=== PATIENT | male | born 1955 | race Caucasian/White ===

== ENCOUNTER 2017-01-10 08:56 | Day surgery (SDC) | payer OTHER ==
[~2017-01-10] VITALS: Ht 182.9 cm; Wt 119.0 kg
[~2017-01-10 08:56] MED LIST: APRESOLINE50 MG PO; CALPHRON667 MG PO; NORVASC10 MG PO; RENA-VITE RX T1 EACH PO; SYNTHROID200 MCG PO; TENORMIN50 MG PO
[2017-01-10 09:36] VITALS: BP 136/83
[2017-01-10 09:57] LABS: HEMATOCRIT 29.6 % (38.0-50.0); MCH 28.4 PG (29.0-34.0); MCHC 32.1 G/DL (30.0-36.0); MCV 88.4 FL (86-99); MEAN PLAT.VOLUME 9.5 uM^3 (9.0-12.4); PLATELET COUNT 304 K/uL (156-360); RBC DIS.WIDTH-SD 43.4 % (39-53); RED BLOOD COUNT 3.35 M/uL (4.00-5.50); WHITE BLOOD COUNT 8.1 K/uL (4.1-10.2)
[2017-01-10 10:14] LABS: ANION GAP 12 MEQ/L (2-14); CHLORIDE 97 MEQ/L (99-109); POTASSIUM 4.4 MEQ/L (3.7-5.4); SAMPLE HEMOLYSIS CHECK 0; SAMPLE ICTERIC CHECK 0; SAMPLE LIPEMIA CHECK 0; SODIUM 139 MEQ/L (136-147)
[2017-01-10 10:19] LABS: GFR ESTIMATE (CALCULATED) 7 mL/min/; GLUCOSE 90 mg/dL (70-99); UREA NITROGEN (BUN) 33 mg/dL (9-23)
[2017-01-10 11:03] LABS: METH RESISTANT S AUREUS PCR NEGATIVE (NEGATIVE)
[2017-01-10 11:05] LABS: PROBE CHECK PASS; SPECIMEN PROCESSING CONTROL PASS
[2017-01-10] MEDS ORDERED: NORCO 5/3251 TABLET PO (14:56)
[2017-01-10 17:30] VITALS: BP 170/81
[2017-01-10 18:09] VITALS: BP 150/79
== END 2017-01-10 18:25 | disposition home or self-care (01) ==
LOC: SDC 08:56
PROVIDERS: Surgery
DX: I12.0 Hypertensive chronic kidney disease with stage 5 chronic kidney disease or end stage renal disease (principal); N18.6 End stage renal disease; E03.9 Hypothyroidism, unspecified
CPT/HCPCS: 80048; 85027; 87641; 93005; J0690; J1644; J2405; J3010

== ENCOUNTER → 2017-03-12 | Outpatient (CLI) | payer OTHER ==
[~2017-03-12] MED LIST changes: +INDOCIN25 MG PO; +NORCO 5/3251 TABLET PO; +PREDNISONE20 MG PO; +VIBRAMYCIN100 MG PO
== END | disposition home or self-care (01) ==
LOC: AMB 08:46
PROC: 05PYX3Z Removal of Infusion Device from Upper Vein, External Approach (ICD-10-PCS; principal; 2017-03-12)
DX: Z49.01 Encounter for fitting and adjustment of extracorporeal dialysis catheter (principal); N18.6 End stage renal disease

== ENCOUNTER 2017-03-18 11:11 | Emergency (ER) | payer OTHER ==
[~2017-03-18] VITALS: Ht 190.5 cm; Wt 119.4 kg
[~2017-03-18 11:11] MED LIST changes: -INDOCIN25 MG PO; -PREDNISONE20 MG PO; -VIBRAMYCIN100 MG PO
[2017-03-18 15:03] LABS: EOSINOPHIL (%) 0 % (0-5); HEMATOCRIT 31.4 % (38.0-50.0); IMMATURE GRANULOCYTE (%) 0.4 % (0.0-0.7); INSTRUMENT ABS NEUTROPHIL CT 5.6 K/uL; LYMPHOCYTE COUNT 1.8 K/uL (1.0-2.8); MCH 29.5 PG (29.0-34.0); MCHC 32.8 G/DL (30.0-36.0); MEAN PLAT.VOLUME 8.9 uM^3 (9.0-12.4); MONOCYTE (%) 12.9 % (3-12); MONOCYTE COUNT 1.1 K/uL (0-0.8); NEUTROPHIL (%) 65.3 % (45-76); NEUTROPHIL COUNT 5.6 K/uL (1.8-6.4); PLATELET COUNT 356 K/uL (156-360); RBC DIS.WIDTH-SD 42.5 % (39-53); RED BLOOD COUNT 3.49 M/uL (4.00-5.50); WHITE BLOOD COUNT 8.5 K/uL (4.1-10.2)
[2017-03-18 15:11] LABS: CHLORIDE 93 mEq/L (99-109); POTASSIUM 3.7 mEq/L (3.7-5.4); SODIUM 138 mEq/L (136-147)
[2017-03-18 15:13] LABS: GLUCOSE 101 mg/dL (70-99)
[2017-03-18 15:14] LABS: ANION GAP 17 MEQ/L (2-14)
[2017-03-18] MEDS ORDERED: VIBRAMYCIN100 MG PO (15:15)
[2017-03-18] MEDS ORDERED: INDOCIN25 MG PO (15:16)
[2017-03-18] MEDS ORDERED: PREDNISONE20 MG PO (15:16)
[2017-03-18 15:17] LABS: GFR ESTIMATE (CALCULATED) 9 mL/min/
[2017-03-18 15:18] LABS: UREA NITROGEN (BUN) 28 mg/dL (9-23)
[2017-03-18 15:41] VITALS: BP 116/68
== END 2017-03-18 15:38 | disposition home or self-care (01) ==
LOC: EME 11:11
PROVIDERS: Physician Assistant
DX: M10.9 Gout, unspecified (principal); I10 Essential (primary) hypertension; E03.9 Hypothyroidism, unspecified; N19 Unspecified kidney failure; Z99.2 Dependence on renal dialysis; Z87.891 Personal history of nicotine dependence
CPT/HCPCS: 73110; 80048; 84550; 85025; 99281; 99284; J7512

== ENCOUNTER 2017-11-24 14:54 | Inpatient (IN) | payer OTHER ==
[~2017-11-24] VITALS: Ht 182.9 cm; Wt 122.0 kg
[2017-11-24] VITALS (12 sets, daily range): BP systolic 65–129; BP diastolic 45–75
[~2017-11-24 14:54] MED LIST changes: +INDOCIN25 MG PO; +PREDNISONE20 MG PO; +VIBRAMYCIN100 MG PO
[2017-11-24 16:01] LABS: HEMATOCRIT 33.4 % (38.0-50.0); MCH 30.3 PG (29.0-34.0); MCHC 32.9 G/DL (30.0-36.0); PLATELET COUNT 182 K/uL (156-360); RBC DIS.WIDTH-CV 13.5 % (11.8-14.6); RBC DIS.WIDTH-SD 46.2 % (39-53); RED BLOOD COUNT 3.63 M/uL (4.00-5.50); WHITE BLOOD COUNT 5.8 K/uL (4.1-10.2)
[2017-11-24 16:08] LABS: ALBUMIN 3.7 g/dL (3.2-4.8); CHLORIDE 95 mEq/L (99-109); POTASSIUM 5.2 mEq/L (3.7-5.4); SODIUM 140 mEq/L (136-147)
[2017-11-24 16:11] LABS: GLUCOSE 114 mg/dL (70-99); TOTAL PROTEIN 6.9 g/dL (6.4-8.3)
[2017-11-24 16:12] LABS: TOTAL BILIRUBIN 0.6 mg/dL (0.0-1.0)
[2017-11-24 16:14] LABS: ALKALINE PHOSPHATASE 32 IU/L (3-129); CREATININE 11.6 mg/dL (0.6-1.3); GFR ESTIMATE (CALCULATED) 5 mL/min/ (58.99-99999)
[2017-11-24 16:15] LABS: UREA NITROGEN (BUN) 68 mg/dL (9-23)
[2017-11-24 16:16] LABS: AST (GOT) 20 IU/L (2-34)
[2017-11-24 16:17] LABS: ALT (GPT) 11 IU/L (3-49)
[2017-11-24 16:19] LABS: TROP-I INTERPRETATION NEGATIVE; TROPONIN-I 0.22 ng/mL (0.0-0.30)
[2017-11-24 16:30] LABS: BICARBONATE 27.9 mEq/L (22-26); CARBOXY HGB 1.7 % (0-5); COMMENTS - BLOOD GASES C+; DEVICE NC; METHEMOGLOBIN 0.8 % (0-1.5); O2 FLOW 6 L/MIN; PCO2 43 mm Hg (35-45); PO2 73 mm Hg (80-100); SITE RB; pH 7.42 (7.35-7.45)
[2017-11-24 17:15] LABS: ABS NEUTROPHIL COUNT 3.6; ANISOCYTOSIS 1+; BAND NEUTROPHILS 49.6 % (0-8.0); EOSINOPHIL ABS CT 0; GIANT PLATELETS 1+; LYMPHOCYTES 4.4 % (15.0-45.0); MICROCYTOSIS 1+; OVALOCYTES 1+; PLAT.SUFFICIENCY ADEQUATE
[2017-11-24] MEDS ORDERED: AMLODIPINE BESY10 MG PO (21:13)
[2017-11-24] MEDS ORDERED: LEVOTHYROXINE200 MC1 PO (21:13)
[2017-11-24] MEDS ORDERED: METOPROLOL SUCC50 MG PO (21:13)
[2017-11-24 22:57] LABS: INTER. NORMALIZED RATIO 1.6
[2017-11-24 22:59] LABS: PTT 41.6 SEC (25-37)
[2017-11-25] VITALS (26 sets, daily range): BP systolic 69–148; BP diastolic 57–108
[2017-11-25 06:05] LABS: HEMATOCRIT 32.5 % (38.0-50.0); HEMOGLOBIN 10.3 G/DL (12.5-16.6); MCH 29.9 PG (29.0-34.0); MCHC 31.7 G/DL (30.0-36.0); MCV 94.5 FL (86-99); RBC DIS.WIDTH-SD 48.2 % (39-53); RED BLOOD COUNT 3.44 M/uL (4.00-5.50); WHITE BLOOD COUNT 10.1 K/uL (4.1-10.2)
[2017-11-25 06:12] LABS: CHLORIDE 98 mEq/L (99-109); SODIUM 142 mEq/L (136-147)
[2017-11-25 06:13] LABS: GLUCOSE 94 mg/dL (70-99)
[2017-11-25 06:17] LABS: CREATININE 11.9 mg/dL (0.6-1.3); GFR ESTIMATE (CALCULATED) 5 mL/min/ (58.99-99999)
[2017-11-25 06:18] LABS: UREA NITROGEN (BUN) 79 mg/dL (9-23)
[2017-11-25 06:21] LABS: POTASSIUM 6.8 mEq/L (3.7-5.4)
[2017-11-25 08:14] LABS: ABS NEUTROPHIL COUNT 9.3; ATYPICAL LYMPHOCYTE 0.9 %; BURR CELLS 3+; EOSINOPHIL ABS CT 0; LYMPHOCYTES 2.6 % (15.0-45.0); MONOCYTES 3.5 % (0-9.0); MYELOCYTES 0.9 %; PLAT.SUFFICIENCY DECREASED; POIKILOCYTOSIS 3+; SMUDGE CELLS 0.9
[2017-11-25 08:18] LABS: BAND NEUTROPHILS 22.6 % (0-8.0); PLATELET COUNT 127 K/uL (156-360); SEG.NEUTROPHILS 69.5 % (46.0-76.0)
[2017-11-25 11:31] LABS: BASE EXCESS 4.1 mEq/L (-3 to +3); BICARBONATE 29.2 mEq/L (22-26); CARBOXY HGB 1.3 % (0-5); COMMENTS - BLOOD GASES A+C+; METHEMOGLOBIN 0.7 % (0-1.5); O2 FLOW 40 L/MIN; PCO2 45 mm Hg (35-45); PO2 98 mm Hg (80-100); SITE RR; pH 7.42 (7.35-7.45)
[2017-11-25 11:32] LABS: DEVICE HHFNC; FI02 80 %; TOTAL RESP RATE 18 resp/min
[2017-11-25 13:09] LABS: CHLORIDE 96 MEQ/L (99-109); GLUCOSE 96 mg/dL (70-99); SODIUM 140 MEQ/L (136-147)
[2017-11-25 13:11] LABS: CREATININE 4.8 MG/DL (0.6-1.3); GFR ESTIMATE (CALCULATED) 13 mL/min/ (58.99-99999); POTASSIUM 4.1 MEQ/L (3.7-5.4); UREA NITROGEN (BUN) 30 mg/dL (9-23)
[2017-11-26] VITALS (26 sets, daily range): BP systolic 74–146; BP diastolic 56–88
[2017-11-26 05:00] LABS: ALBUMIN 3.3 g/dL (3.2-4.8)
[2017-11-26 05:01] LABS: CHLORIDE 94 mEq/L (99-109); POTASSIUM 4.8 mEq/L (3.7-5.4); SODIUM 139 mEq/L (136-147)
[2017-11-26 05:04] LABS: GLUCOSE 169 mg/dL (70-99)
[2017-11-26 05:07] LABS: CREATININE 7.4 mg/dL (0.6-1.3); GFR ESTIMATE (CALCULATED) 8 mL/min/ (58.99-99999)
[2017-11-26 05:17] LABS: UREA NITROGEN (BUN) 55 mg/dL (9-23)
[2017-11-27] VITALS (25 sets, daily range): BP systolic 47–165; BP diastolic 24–112
[2017-11-27 05:29] LABS: HEMATOCRIT 32.6 % (38.0-50.0); HEMOGLOBIN 10.4 G/DL (12.5-16.6); MCH 28.9 PG (29.0-34.0); MCHC 31.9 G/DL (30.0-36.0); MCV 90.6 FL (86-99); NRBC (%) 0.3 /100 WBC (0-0); PLATELET COUNT 130 K/uL (156-360); RBC DIS.WIDTH-CV 13.5 % (11.8-14.6)
[2017-11-27 06:28] LABS: CHLORIDE 93 MEQ/L (99-109); CREATININE 8.5 MG/DL (0.6-1.3); GFR ESTIMATE (CALCULATED) 7 mL/min/ (58.99-99999); GLUCOSE 169 mg/dL (70-99); PHOSPHORUS 5.8 mg/dL (2.5-4.9); POTASSIUM 4.8 MEQ/L (3.7-5.4); SODIUM 137 MEQ/L (136-147)
[2017-11-27 06:35] LABS: UREA NITROGEN (BUN) 83 mg/dL (9-23)
[2017-11-27 21:16] LABS: INTER. NORMALIZED RATIO 1.1
[2017-11-27 21:19] LABS: PTT 27.1 SEC (25-37)
[2017-11-28] VITALS: BP 144/65
[2017-11-28 03:13] LABS: HEMATOCRIT 36.2 % (38.0-50.0); MCH 29.9 PG (29.0-34.0); MCHC 33.1 G/DL (30.0-36.0); MCV 90.3 FL (86-99); NRBC (%) 0.4 /100 WBC (0-0); RBC DIS.WIDTH-CV 13.3 % (11.8-14.6); RBC DIS.WIDTH-SD 44.3 % (39-53); RED BLOOD COUNT 4.01 M/uL (4.00-5.50); WHITE BLOOD COUNT 13.8 K/uL (4.1-10.2)
[2017-11-28 03:14] LABS: PLATELET COUNT 192 K/uL (156-360)
[2017-11-28 03:25] LABS: CHLORIDE 98 mEq/L (99-109); POTASSIUM 5.3 mEq/L (3.7-5.4); SODIUM 139 mEq/L (136-147)
[2017-11-28 03:27] LABS: GLUCOSE 167 mg/dL (70-99)
[2017-11-28 03:31] LABS: GFR ESTIMATE (CALCULATED) 11 mL/min/ (58.99-99999)
[2017-11-28 03:32] LABS: UREA NITROGEN (BUN) 56 mg/dL (9-23)
[2017-11-28 03:33] LABS: CREATININE 5.7 mg/dL (0.6-1.3)
[2017-11-28 04:00] VITALS: BP 135/88
[2017-11-28 08:01] VITALS: BP 165/106
[2017-11-28 15:15] VITALS: BP 183/86
[2017-11-28 20:32] VITALS: BP 175/89
[2017-11-28 23:13] VITALS: BP 140/62
[2017-11-29 05:51] VITALS: BP 135/82
[2017-11-29 08:32] LABS: HEMATOCRIT 36.9 % (38.0-50.0); HEMOGLOBIN 12.2 G/DL (12.5-16.6); MCH 29.8 PG (29.0-34.0); MCHC 33.1 G/DL (30.0-36.0); MCV 90.2 FL (86-99); NRBC (%) 0.4 /100 WBC (0-0); PLATELET COUNT 220 K/uL (156-360); RBC DIS.WIDTH-CV 13.2 % (11.8-14.6); RBC DIS.WIDTH-SD 43.5 % (39-53); RED BLOOD COUNT 4.09 M/uL (4.00-5.50); WHITE BLOOD COUNT 19.1 K/uL (4.1-10.2)
[2017-11-29 08:42] LABS: ALBUMIN 3.1 G/DL (3.2-4.8); CHLORIDE 93 MEQ/L (99-109); POTASSIUM 5.2 MEQ/L (3.7-5.4)
[2017-11-29 08:48] LABS: GLUCOSE 164 mg/dL (70-99); PHOSPHORUS 6.6 mg/dL (2.5-4.9)
[2017-11-29 08:55] LABS: CREATININE 7.2 MG/DL (0.6-1.3); GFR ESTIMATE (CALCULATED) 8 mL/min/ (58.99-99999); SODIUM 132 MEQ/L (136-147); UREA NITROGEN (BUN) 97 mg/dL (9-23)
[2017-11-29 09:06] LABS: ABS NEUTROPHIL COUNT 17.6; ANISOCYTOSIS 1+; ATYPICAL LYMPHOCYTE 1.7 %; BAND NEUTROPHILS 3.5 % (0-8.0); EOSINOPHIL ABS CT 0; HYPOCHROMASIA 1+; LYMPHOCYTES 3.5 % (15.0-45.0); METAMYELOCYTES 0.9 %; MONOCYTES 1.7 % (0-9.0); NUCLEATED RBC'S 0.9; PLAT.SUFFICIENCY ADEQUATE; SEG.NEUTROPHILS 88.7 % (46.0-76.0)
[2017-11-29 19:40] VITALS: BP 112/68; BP 112/76
[2017-11-29 23:39] VITALS: BP 124/73
[2017-11-30 03:09] VITALS: BP 124/76
[2017-11-30 05:25] LABS: HEMATOCRIT 37.6 % (38.0-50.0); HEMOGLOBIN 12.1 G/DL (12.5-16.6); MCH 29.3 PG (29.0-34.0); MCHC 32.2 G/DL (30.0-36.0); NRBC (%) 0.4 /100 WBC (0-0); PLATELET COUNT 248 K/uL (156-360); RBC DIS.WIDTH-CV 13.1 % (11.8-14.6); RBC DIS.WIDTH-SD 43.4 % (39-53); RED BLOOD COUNT 4.13 M/uL (4.00-5.50)
[2017-11-30 05:54] LABS: CHLORIDE 90 MEQ/L (99-109); CREATININE 6.2 MG/DL (0.6-1.3); GFR ESTIMATE (CALCULATED) 10 mL/min/ (58.99-99999); GLUCOSE 185 mg/dL (70-99); POTASSIUM 4.9 MEQ/L (3.7-5.4); SODIUM 132 MEQ/L (136-147); UREA NITROGEN (BUN) 72 mg/dL (9-23)
[2017-11-30 05:57] LABS: BURR CELLS 1+; EOSINOPHIL ABS CT 0; LYMPHOCYTES 0.9 % (15.0-45.0); MONOCYTES 4.3 % (0-9.0); NUCLEATED RBC'S 0.9; OVALOCYTES 1+; PLAT.SUFFICIENCY ADEQUATE; POIKILOCYTOSIS 1+; POLYCHROMASIA 1+; SEG.NEUTROPHILS 94.8 % (46.0-76.0)
[2017-11-30 10:00] VITALS: BP 133/64
[2017-11-30 12:48] VITALS: BP 105/60
[2017-11-30 17:07] VITALS: BP 111/61
[2017-11-30 20:00] VITALS: BP 128/73
[2017-11-30 23:55] VITALS: BP 138/72
[2017-12-01 04:00] VITALS: BP 100/59
[2017-12-01 05:39] LABS: HEMATOCRIT 38.8 % (38.0-50.0); HEMOGLOBIN 12.8 G/DL (12.5-16.6); MCH 29.4 PG (29.0-34.0); MCV 89.2 FL (86-99); NRBC (%) 0.2 /100 WBC (0-0); PLATELET COUNT 256 K/uL (156-360); RBC DIS.WIDTH-CV 13.2 % (11.8-14.6); RBC DIS.WIDTH-SD 42.7 % (39-53); RED BLOOD COUNT 4.35 M/uL (4.00-5.50); WHITE BLOOD COUNT 22.4 K/uL (4.1-10.2)
[2017-12-01 05:54] LABS: CHLORIDE 91 MEQ/L (99-109); GFR ESTIMATE (CALCULATED) 8 mL/min/ (58.99-99999); GLUCOSE 151 mg/dL (70-99); POTASSIUM 5.2 MEQ/L (3.7-5.4); SODIUM 135 MEQ/L (136-147)
[2017-12-01 05:55] LABS: CREATININE 7.6 MG/DL (0.6-1.3)
[2017-12-01 06:15] LABS: UREA NITROGEN (BUN) 104 mg/dL (9-23)
[2017-12-01 06:34] LABS: HEMOGLOBIN 12.8 G/DL (12.5-16.6); MCH 29.3 PG (29.0-34.0); MCHC 32.8 G/DL (30.0-36.0); MCV 89.2 FL (86-99); NRBC (%) 0.2 /100 WBC (0-0); PLATELET COUNT 242 K/uL (156-360); RBC DIS.WIDTH-CV 13.2 % (11.8-14.6); RBC DIS.WIDTH-SD 42.9 % (39-53); RED BLOOD COUNT 4.37 M/uL (4.00-5.50)
[2017-12-01 06:49] LABS: PLAT.SUFFICIENCY ADEQUATE
[2017-12-01 07:21] VITALS: BP 118/68
[2017-12-01] MEDS ORDERED: MYCOSTATIN 100,60 ML PO (10:42)
[2017-12-01] MEDS ORDERED: RENVELA800 MG PO (10:42)
[2017-12-01] MEDS ORDERED: SPIRIVA RESPIMAT4 G1 IH (10:42)
[2017-12-01] MEDS ORDERED: ADVAIR HFA120 INHALA IH (10:42)
[2017-12-01] MEDS ORDERED: LISINOPRIL40 MG PO (10:42)
[2017-12-01] MEDS ORDERED: CARVEDILOL25 MG PO (10:42)
[2017-12-01] MEDS ORDERED: CEFDINIR300 MG PO (10:42)
[2017-12-01] MEDS ORDERED: ELIQUIS2.5 MG PO (10:42)
[2017-12-01] MEDS ORDERED: VENTOLIN HFA18 GM IH (10:42)
[2017-12-01] MEDS ORDERED: PREDNISONE20 MG PO (10:42)
[2017-12-01 12:00] VITALS: BP 107/59
[2017-12-01] MEDS ORDERED: INCRUSE ELLI62.5 MCG IH (12:08)
== END 2017-12-01 15:31 | disposition home health service (06) | DRG 871 ==
LOC: EME 14:54 → ENRESERV 17:03 → EDOF 17:04 → 4EAST 17:04 → 4WEST 17:04 → ENRESERV 17:06 → 4WEST 19:27 → ENRESERV 11-28 09:08 → 4EAST 11-28 15:01 → ENPENDDIS 12-01 → 4EAST 12-01 15:31
PROVIDERS: Emergency Medicine; Hospitalist; Internal Medicine; Internal Medicine Nephrology; Specialist; Surgery
PROC: 02HV33Z Insertion of Infusion Device into Superior Vena Cava, Percutaneous Approach (ICD-10-PCS; principal; 2017-11-25)
PROC: 5A1D70Z Performance of Urinary Filtration, Intermittent, Less than 6 Hours Per Day (ICD-10-PCS; 2017-11-25)
DX: A40.3 Sepsis due to Streptococcus pneumoniae (principal); J13 Pneumonia due to Streptococcus pneumoniae; J96.01 Acute respiratory failure with hypoxia; N18.6 End stage renal disease; R65.21 Severe sepsis with septic shock; J44.0 Chronic obstructive pulmonary disease with (acute) lower respiratory infection; J44.1 Chronic obstructive pulmonary disease with (acute) exacerbation; J98.11 Atelectasis; N25.81 Secondary hyperparathyroidism of renal origin; J90 Pleural effusion, not elsewhere classified; I42.9 Cardiomyopathy, unspecified; I12.0 Hypertensive chronic kidney disease with stage 5 chronic kidney disease or end stage renal disease; E87.2 Acidosis; I27.20 Pulmonary hypertension, unspecified; I35.0 Nonrheumatic aortic (valve) stenosis; I34.2 Nonrheumatic mitral (valve) stenosis; I36.1 Nonrheumatic tricuspid (valve) insufficiency; F17.210 Nicotine dependence, cigarettes, uncomplicated; E87.5 Hyperkalemia; D63.1 Anemia in chronic kidney disease; I48.91 Unspecified atrial fibrillation; E66.9 Obesity, unspecified; Z99.2 Dependence on renal dialysis; Z79.01 Long term (current) use of anticoagulants; Z68.35 Body mass index [BMI] 35.0-35.9, adult; Z79.51 Long term (current) use of inhaled steroids; Z79.52 Long term (current) use of systemic steroids
CPT/HCPCS: 36600; 71045; 80048; 80048 91; 80053; 80069; 82803; 82948; 83605; 84484; 85025; 85027; 85610; 85730; 87040; 87077; 87181; 87502; 87641; 87801; 93005; 93306; 94002; 94640; 94640 76; 94760; 94799; 99202; 99281; 99285; C1751; J0456; J0696; J0881; J1160; J1644; J2543; J2930; J3370; J7030; J7040; J7050; J7512